=== PATIENT | male | born 1965 | race Caucasian/White ===

== ENCOUNTER 2021-10-16 11:25 | Inpatient (IN) | payer OTHER ==
[2021-10-16 12:19] VITALS: BMI 21.5
[2021-10-16] MEDS ORDERED: IBUPROFEN 400 MG TABLET (FP) PO PRN (12:44)
[2021-10-16] MEDS ORDERED: IBUPROFEN 600 MG TABLET (FP) PO PRN (12:44)
[2021-10-16] MEDS ORDERED: chlordiazePOXIDE HCL 25 MG CAPSULE PO ONE (12:44)
[2021-10-16] MEDS ORDERED: MAGNESIUM HYDROX 2400MG/30ML ORAL SUSPENSION 30 ML CUP PO PRN (12:44)
[2021-10-16] MEDS ORDERED: BENZOCAINE/MENTHOL (CHLORASEPTIC ) LOZENGE MM PRN (12:44)
[2021-10-16] MEDS ORDERED: BISMUTH SUBSALICYLATE 524 MG/30 ML PO PRN (12:44)
[2021-10-16] MEDS ORDERED: MAG HYDROX/AL HYDROX/SIMETH 30 ML UNIT-DOSE CUP PO PRN (12:44)
[2021-10-16] MEDS ORDERED: chlordiazePOXIDE HCL 25 MG CAPSULE PO PRN (12:44)
[2021-10-16] MEDS ORDERED: LOPERAMIDE HCL 2 MG CAPSULE PO PRN (12:44)
[2021-10-16] MEDS ORDERED: MAGNESIUM CITRATE 300 ML BOTTLE PO PRN (12:44)
[2021-10-16] MEDS ORDERED: METHOCARBAMOL 500 MG TABLET PO PRN (12:44)
[2021-10-16] MEDS ORDERED: ACETAMINOPHEN 325 MG TABLET (FP) PO PRN ×2 (12:44)
[2021-10-16] MEDS ORDERED: DICYCLOMINE HCL 10 MG CAPSULE PO PRN (12:44)
[2021-10-16] MEDS ORDERED: ONDANSETRON *ODT* 4 MG TABLET SL PRN (12:44)
[2021-10-16] MEDS ORDERED: chlordiazePOXIDE HCL 25 MG CAPSULE ONE (14:24)
[2021-10-16] MEDS: PRENATAL VITAMINS W/ FOLIC ACID TABLET (FP) PO SCH (14:44)
[2021-10-16] MEDS: hydrOXYzine PAMOATE 25 MG CAPSULE (FP) PO SCH ×3 (14:44→23:03)
[2021-10-16 16:41] LABS: HEMATOCRIT 42.7 % (35.4-49); HEMOGLOBIN 14.2 GM/dL (11.7-16.9); MCH 30.7 pg (25.7-33.7); MCHC 33.3 g/dl (32.0-35.9); MEAN CELL VOLUME 92.1 fl (80-96); MEAN PLT VOLUME 8.4 fl (7.5-11.1); PLATELET COUNT 171 10^3/uL (134-434); RBC 4.64 M/mm3 (4.00-5.60); RDW 15.2 % (11.9-15.9)
[2021-10-16 16:44] LABS: ALBUMIN 3.4 g/dl (3.4-5.0); BLOOD UREA NITROGEN 17.2 mg/dL (7-18); CALCIUM 8.9 mg/dL (8.5-10.1)
[2021-10-16 16:47] LABS: CREATININE 0.7 mg/dL (0.55-1.3)
[2021-10-16 16:49] LABS: BILIRUBIN,TOTAL 0.4 mg/dL (0.2-1); TOT PROT 7.4 g/dl (6.4-8.2)
[2021-10-16] MEDS: chlordiazePOXIDE HCL 25 MG CAPSULE PO SCH ×2 (18:26→23:03)
[2021-10-16] MEDS ORDERED: MELATONIN 5 MG TABLETS PO SCH (22:00)
[2021-10-16] MEDS: THIAMINE HCL 100 MG TABLET (FP) PO SCH (23:03)
[2021-10-17] MEDS: chlordiazePOXIDE HCL 25 MG CAPSULE PO SCH ×4 (05:53→23:34)
[2021-10-17] MEDS: hydrOXYzine PAMOATE 25 MG CAPSULE (FP) PO SCH (06:53)
[2021-10-17] MEDS: PRENATAL VITAMINS W/ FOLIC ACID TABLET (FP) PO SCH (10:25)
[2021-10-17] MEDS ORDERED: QUEtiapine FUMARATE 100 MG TABLET (FP) PO SCH (22:00)
[2021-10-17] MEDS ORDERED: DIVALPROEX NA *ER* EXTEND REL 500 MG TABLET.SA (FP) PO SCH (22:00)
[2021-10-17] MEDS ORDERED: HALOPERIDOL 2 MG TABLET PO SCH (22:00)
[2021-10-17] MEDS ORDERED: BENZTROPINE MESYLATE 1 MG TABLET PO SCH (22:00)
[2021-10-17] MEDS ORDERED: DIVALPROEX SODIUM 500 MG TABLET E.C. PO SCH (22:00)
[2021-10-17] MEDS: THIAMINE HCL 100 MG TABLET (FP) PO SCH (22:44)
[2021-10-17] MEDS ORDERED: HALOPERIDOL 1 MG TABLET PO SCH (22:57)
[2021-10-18] MEDS: chlordiazePOXIDE HCL 25 MG CAPSULE PO SCH ×3 (05:23→18:45)
[2021-10-18] MEDS: PRENATAL VITAMINS W/ FOLIC ACID TABLET (FP) PO SCH (10:13)
[2021-10-18] MEDS ORDERED: ASPIRIN 81 MG CHEWABLE TABLETS PO SCH (15:30)
[2021-10-18 19:15] VITALS: BP 137/87; PULSE 110; RESP 18; TEMP 97.3
[2021-10-18] MEDS ORDERED: DIVALPROEX SODIUM 500 MG TABLET E.C. PO SCH (22:00)
[2021-10-18] MEDS ORDERED: DIVALPROEX NA *ER* EXTEND REL 500 MG TABLET.SA (FP) PO SCH (22:00)
[2021-10-19] MEDS ORDERED: chlordiazePOXIDE HCL 10 MG CAPSULE PO PRN
[2021-10-19] MEDS ORDERED: chlordiazePOXIDE HCL 10 MG CAPSULE PO SCH (05:00)
[2021-10-20] MEDS ORDERED: chlordiazePOXIDE HCL 10 MG CAPSULE PO SCH (05:00)
[2021-10-21] MEDS ORDERED: chlordiazePOXIDE HCL 10 MG CAPSULE PO ONE (05:00)
== END 2021-10-18 19:00 | disposition other institution (70) | DRG 894 ==
LOC: YASAS 11:25 → Y3N 14:13 → Y6N 14:19
PROVIDERS: ADMIT Allergy & Immunology; ATTEND Surgery
PROC: HZ2ZZZZ Detoxification Services for Substance Abuse Treatment (ICD-10-PCS; principal; 2021-10-16)
DX: F10.230 Alcohol dependence with withdrawal, uncomplicated (principal); F19.282 Other psychoactive substance dependence with psychoactive substance-induced sleep disorder; F14.10 Cocaine abuse, uncomplicated; F20.9 Schizophrenia, unspecified; F31.9 Bipolar disorder, unspecified; Z87.891 Personal history of nicotine dependence; S00.83XA Contusion of other part of head, initial encounter; W18.2XXA Fall in (into) shower or empty bathtub, initial encounter; Y92.231 Patient bathroom in hospital as the place of occurrence of the external cause; Y93.E1 Activity, personal bathing and showering
CPT/HCPCS: 36415; 80053; 80164; 82140; 82962; 85027; 86780; 93005; 93010; C9803-CS; U0003; U0005

== ENCOUNTER 2024-03-04 14:54 | Inpatient (IN) | payer OTHER ==
[2024-03-04 16:36] VITALS: BMI 22.3
[2024-03-04] MEDS ORDERED: BISMUTH SUBSALICYLATE 524 MG/30 ML PO PRN (16:51)
[2024-03-04] MEDS ORDERED: ONDANSETRON *ODT* 4 MG TABLET SL PRN (16:51)
[2024-03-04] MEDS ORDERED: ACETAMINOPHEN 325 MG TABLET (FP) PO PRN (16:51)
[2024-03-04] MEDS ORDERED: MAG HYDROX/AL HYDROX/SIMETH 30 ML UNIT-DOSE CUP PO PRN (16:51)
[2024-03-04] MEDS ORDERED: IBUPROFEN 600 MG TABLET (FP) PO PRN (16:51)
[2024-03-04] MEDS ORDERED: POLYETHYLENE GLYCOL (HEALTHYLAX) 3350 17 GM PACKET PO PRN (16:51)
[2024-03-04] MEDS ORDERED: BENZONATATE 200 MG CAPSULE PO PRN (16:51)
[2024-03-04] MEDS ORDERED: MAGNESIUM HYDROX 2400MG/30ML ORAL SUSPENSION 30 ML CUP PO PRN (16:51)
[2024-03-04] MEDS ORDERED: NALOXONE (NARCAN) HCL 4 MG/0.1 ML SPRAY NS PRN (16:51)
[2024-03-04] MEDS ORDERED: IBUPROFEN 400 MG TABLET (FP) PO PRN (16:51)
[2024-03-04] MEDS ORDERED: DICYCLOMINE HCL 10 MG CAPSULE PO PRN (16:51)
[2024-03-04] MEDS ORDERED: hydrOXYzine PAMOATE 25 MG CAPSULE (FP) PO PRN (16:51)
[2024-03-04] MEDS ORDERED: LOPERAMIDE HCL 2 MG CAPSULE PO PRN (16:51)
[2024-03-05] MEDS: THIAMINE 100 MG TABLET PO SCH (00:01)
[2024-03-05] MEDS: MELATONIN 5 MG TABLETS PO SCH (00:02)
[2024-03-05] MEDS: QUEtiapine FUMARATE 100 MG TABLET (FP) PO ONE (00:02)
[2024-03-05] MEDS: DIVALPROEX SODIUM 500 MG TABLET E.C. PO ONE (00:02)
[2024-03-05] MEDS: guaiFENesin 600 MG TABLET.ER (FP) PO PRN (00:04)
[2024-03-05] MEDS ORDERED: diazePAM 5 MG TABLET PO PRN (08:57)
[2024-03-05] MEDS: PRENATAL VITAMINS W/ FOLIC ACID TABLET (FP) PO SCH (10:12)
[2024-03-05] MEDS: diazePAM 5 MG TABLET PO SCH (10:14)
[2024-03-05] MEDS: BENZOCAINE/MENTHOL (CHLORASEPTIC ) LOZENGE MM PRN (10:15)
[2024-03-05 11:29] LABS: HEMATOCRIT 40.8 % (35.4-49); HEMOGLOBIN 13.1 GM/dL (11.7-16.9); MCH 28.8 pg (25.7-33.7); MCHC 32.1 g/dl (32.0-35.9); MEAN CELL VOLUME 89.7 fl (80-96); MEAN PLT VOLUME 8.7 fl (7.5-11.1); PLATELET COUNT 175 10^3/uL (134-434); RBC 4.54 M/mm3 (4.00-5.60); RDW 17.2 % (11.9-15.9); WHITE BLOOD COUNT 4.7 K/mm3 (4.0-10.0)
[2024-03-05 13:31] LABS: CHLORIDE 105 mmol/L (98-107); POTASSIUM 3.3 mmol/L (3.5-5.1); SODIUM 140 mmol/L (136-145)
[2024-03-05 13:38] LABS: ALBUMIN 2.9 g/dl (3.4-5.0); ANION GAP 8 mmol/L (4-13); BLOOD UREA NITROGEN 7.4 mg/dL (7-18); CALCIUM 8.9 mg/dL (8.5-10.1); CO2 27 mmol/L (21-32); GLUCOSE,RANDOM 83 mg/dL (74-106)
[2024-03-05 13:41] LABS: CREATININE 0.5 mg/dL (0.55-1.3); SGOT/AST 15 U/L (15-37)
[2024-03-05 13:43] LABS: BILIRUBIN,TOTAL 0.6 mg/dL (0.2-1); SGPT/ALT 12 U/L (13-61); TOT PROT 6.4 g/dl (6.4-8.2)
[2024-03-05 13:44] LABS: ALK PHOS 62 U/L (45-117)
[2024-03-05] MEDS: POTASSIUM CHLORIDE ORAL LIQUID 20 MEQ/15 ML PO ONE (14:03)
[2024-03-05] MEDS: DIVALPROEX SODIUM 500 MG TABLET E.C. PO SCH (22:16)
[2024-03-05] MEDS: QUEtiapine FUMARATE 200 MG TABLET PO SCH (22:16)
[2024-03-06] MEDS: TRIMETHOBENZAMIDE HCL 200MG/2ML INJ IM PRN (11:19)
[2024-03-06] MEDS: METHOCARBAMOL 500 MG TABLET PO PRN (22:28)
[2024-03-07] MEDS: diazePAM 5 MG TABLET PO SCH (05:13)
[2024-03-08] MEDS: diazePAM 5 MG TABLET PO SCH (05:19)
[2024-03-08] MEDS: NALOXONE (NYS OPIOID OVERDOSE PROGRAM) 4 MG/0.1 ML SPRAY NS SCH (13:02)
[2024-03-08 20:44] VITALS: RESP 18
[2024-03-09] MEDS: diazePAM 5 MG TABLET PO ONE (05:52)
[2024-03-09 09:01] VITALS: BP 102/59; PULSE 105; TEMP 99.5
== END 2024-03-09 11:48 | disposition other institution (70) | DRG 897 ==
LOC: YASAS 14:54 → Y3N 19:03
PROVIDERS: ADMIT Allergy & Immunology; ATTEND Family Medicine Addiction Medicine
PROC: HZ2ZZZZ Detoxification Services for Substance Abuse Treatment (ICD-10-PCS; principal; 2024-03-04)
DX: F10.230 Alcohol dependence with withdrawal, uncomplicated (principal); F14.20 Cocaine dependence, uncomplicated; F25.9 Schizoaffective disorder, unspecified; F31.9 Bipolar disorder, unspecified; G47.00 Insomnia, unspecified
CPT/HCPCS: 36415; 80053; 80164; 80305; 80307; 84132; 85027; 86780; 87811; 93005; 93010

== ENCOUNTER 2024-03-09 11:55 | Inpatient (IN) | payer OTHER ==
[2024-03-09] MEDS ORDERED: NALOXONE (NARCAN) HCL 4 MG/0.1 ML SPRAY NS PRN (13:55)
[2024-03-09] MEDS ORDERED: LOPERAMIDE HCL 2 MG CAPSULE PO PRN (13:55)
[2024-03-09] MEDS ORDERED: hydrOXYzine PAMOATE 25 MG CAPSULE (FP) PO PRN (13:55)
[2024-03-09] MEDS ORDERED: BENZONATATE 200 MG CAPSULE PO PRN (13:55)
[2024-03-09] MEDS ORDERED: NICOTINE POLACRILEX 4 MG LOZENGE BC PRN (13:55)
[2024-03-09] MEDS ORDERED: IBUPROFEN 600 MG TABLET (FP) PO PRN (13:55)
[2024-03-09] MEDS ORDERED: BENZOCAINE/MENTHOL (CHLORASEPTIC ) LOZENGE MM PRN (13:55)
[2024-03-09] MEDS ORDERED: METHOCARBAMOL 500 MG TABLET PO PRN (13:55)
[2024-03-09] MEDS ORDERED: IBUPROFEN 400 MG TABLET (FP) PO PRN (13:55)
[2024-03-09] MEDS ORDERED: NALOXONE HCL 0.4 MG/ML VIAL IVPUSH PRN (13:55)
[2024-03-09] MEDS ORDERED: MAG HYDROX/AL HYDROX/SIMETH 30 ML UNIT-DOSE CUP PO PRN (13:55)
[2024-03-09] MEDS ORDERED: MAGNESIUM HYDROX 2400MG/30ML ORAL SUSPENSION 30 ML CUP PO PRN (13:55)
[2024-03-09] MEDS ORDERED: guaiFENesin 600 MG TABLET.ER (FP) PO PRN (13:55)
[2024-03-09] MEDS ORDERED: NICOTINE POLACRILEX 4 MG GUM BUC PRN (13:55)
[2024-03-09] MEDS ORDERED: POLYETHYLENE GLYCOL (HEALTHYLAX) 3350 17 GM PACKET PO PRN (13:55)
[2024-03-09] MEDS ORDERED: ACETAMINOPHEN 325 MG TABLET (FP) PO PRN (13:55)
[2024-03-09] MEDS ORDERED: TUBERCULIN PPD 5 TU/0.1ML VIAL ID ONE (17:17)
[2024-03-09] MEDS: TUBERCULIN PPD 5 TU/0.1ML VIAL ID ONE (17:27)
[2024-03-09] MEDS: MELATONIN 5 MG TABLETS PO SCH (21:22)
[2024-03-09] MEDS: QUEtiapine FUMARATE 200 MG TABLET PO SCH (21:23)
[2024-03-09] MEDS: THIAMINE 100 MG TABLET PO SCH (21:23)
[2024-03-09] MEDS: DIVALPROEX SODIUM 500 MG TABLET E.C. PO SCH (21:23)
[2024-03-10] MEDS: PRENATAL VITAMINS W/ FOLIC ACID TABLET (FP) PO SCH (09:55)
[2024-03-11] MEDS: LACTULOSE 20 GM/30 ML UDC (FOR ORAL USE ONLY) PO SCH (21:29)
[2024-03-11] MEDS: BACLOFEN 10 MG TABLET (FP) PO SCH (21:30)
[2024-03-22] MEDS: NALOXONE (NYS OPIOID OVERDOSE PROGRAM) 4 MG/0.1 ML SPRAY NS SCH (14:49)
[2024-03-23 06:31] VITALS: BP 110/73; PULSE 88; RESP 20; TEMP 97.7
[2024-03-23] MEDS: NALOXONE (NYS OPIOID OVERDOSE PROGRAM) 4 MG/0.1 ML SPRAY NS ONE (09:24)
== END 2024-03-23 09:27 | disposition home or self-care (01) | DRG 895 ==
LOC: YASAS 11:55 → Y3E 11:57
PROVIDERS: ADMIT Psychiatry & Neurology Pain Medicine; ATTEND Psychiatry & Neurology Pain Medicine
PROC: HZ42ZZZ Group Counseling for Substance Abuse Treatment, Cognitive-Behavioral (ICD-10-PCS; principal; 2024-03-09)
DX: F10.20 Alcohol dependence, uncomplicated (principal); F14.20 Cocaine dependence, uncomplicated; F19.282 Other psychoactive substance dependence with psychoactive substance-induced sleep disorder; E72.20 Disorder of urea cycle metabolism, unspecified; F31.9 Bipolar disorder, unspecified; F20.9 Schizophrenia, unspecified; R00.0 Tachycardia, unspecified; Z96.651 Presence of right artificial knee joint; Z87.891 Personal history of nicotine dependence
CPT/HCPCS: 36415; 80164; 82140; 82652; 83735; 86803; J0475